=== PATIENT | female | born 1965 | race Caucasian/White ===

== ENCOUNTER 2017-10-12 08:52 | Emergency (ER) | payer OTHER ==
[~2017-10-12] VITALS: Ht 152.4 cm; Wt 60.0 kg
[2017-10-12 08:53] VITALS: BP 119/79; PULSE 81; RESP 18; TEMP 97.6; O2SAT 99
[2017-10-12] MEDS ORDERED: PROG1GEL (08:58)
[2017-10-12] MEDS ORDERED: SODIUM CHLORIDE 0.9% FLUSH 10 ML FLUSH IV FLUSH PRN (09:00)
[2017-10-12] MEDS ORDERED: ONDANSETRON HCL 4 MG/2 ML VIAL ONE (09:08)
--- NOTE | 2017-10-12 09:24 | PD ---
HPI Chief Complaint: GI Complaint Time Seen by Provider: 09:21 Travel History International Travel<30 days: No Contact w/Intl Traveler<30days: No Traveled to known affect area: No History of Present Illness HPI 52-year-old female patient presents to the ER today, states that she has been staying with her mother in the hospital after her mother had received hip surgery, and states that since last night she has been having fevers and chills , nauseous, vomiting, and diarrhea this morning. She states that she feels dizzy, also states that she is having a headache, history of migraines, headache currently rated an 8 out of 10. She denies any chest pains, shortness of breath, or other issues. Modifying Factors: None Associated Signs & Symptoms: Fevers and chills, nausea, vomiting, diarrhea, headache Risk Factors: Nausea, vomiting, diarrhea, she does not know of other sick contact. Migraine headaches. PFSH Past Medical History Medical History: Denies Significant Hx Tetanus Vaccination: > 5 Years Influenza Vaccination: No ?: Not LMP: 09/17/17 Past Surgical History Surgical History: No Previous Surgery Social History Alcohol Use: No Tobacco Use: No Substance Use: No Allergies-Medications (Allergen,Severity, Reaction): Coded Allergies: No Known Allergies (Verified Allergy, Unknown, 10/12/17) Reported Meds & Prescriptions Reported Meds & Active Scripts Active Zofran Odt (Ondansetron Odt) 4 Mg Tab 4 Mg SL Q6HR PRN Reported Crinone Topical (Progesterone (Vaginal) Topical) 4 % Gel Review of Systems Except as stated in HPI: all other systems reviewed are Neg Physical Exam Narrative GENERAL: Well-developed middle-aged female patient currently in moderate distress. Awake and oriented 3. SKIN: Focused skin assessment warm/dry. HEAD: Atraumatic. Normocephalic. EYES: Pupils equal and round. No scleral icterus. No injection or drainage. ENT: No nasal bleeding or discharge. Mucous membranes pink and moist. NECK: Trachea midline. No JVD. Supple. CARDIOVASCULAR: Regular rate and rhythm. No murmur appreciated. RESPIRATORY: No accessory muscle use. Clear to auscultation. Breath sounds equal bilaterally. GASTROINTESTINAL: Abdomen soft, non-tender, nondistended. Hepatic and splenic margins not palpable. MUSCULOSKELETAL: No obvious deformities. No clubbing. No cyanosis. No edema. NEUROLOGICAL: Awake and alert. No obvious cranial nerve deficits. Motor grossly within normal limits. Normal speech. PSYCHIATRIC: Appropriate mood and affect; insight and judgment normal. Data Data Last Documented VS Vital Signs Date Time Temp Pulse Resp B/P (MAP) Pulse Ox O2 Delivery O2 Flow Rate FiO2 10/12/17 11:33 80 18 124/78 (93) 99 Room Air 10/12/17 08:53 97.6 Orders Orders Complete Blood Count With Diff (10/12/17 09:00) Comprehensive Metabolic Panel (10/12/17 09:00) Lipase (10/12/17 09:00) Urinalysis - C+S If Indicated (10/12/17 09:00) Iv Access Insert/Monitor (10/12/17 09:00) Ecg Monitoring (10/12/17 09:00) Oximetry (10/12/17 09:00) Sodium Chloride 0.9% Flush (Ns Flush) (10/12/17 09:00) Ondansetron Inj (Zofran Inj) (10/12/17 09:08) Sodium Chlor 0.9% 1000 Ml Inj (Ns 1000 M (10/12/17 09:30) Influenzae A/B Antigen (10/12/17 09:21) Metoclopramide Inj (Reglan Inj) (10/12/17 10:15) Diphenhydramine Inj (Benadryl Inj) (10/12/17 10:15) Ct Brain W/O Iv Contrast(Rout) (10/12/17 11:19) Labs Laboratory Tests Test 10/12/17 09:00 10/12/17 09:20 White Blood Count 7.8 TH/MM3 Red Blood Count 4.29 MIL/MM3 Hemoglobin 13.6 GM/DL Hematocrit 39.5 % Mean Corpuscular Volume 92.0 FL Mean Corpuscular Hemoglobin 31.6 PG Mean Corpuscular Hemoglobin Concent 34.4 % Red Cell Distribution Width 14.0 % Platelet Count 249 TH/MM3 Mean Platelet Volume 9.4 FL Neutrophils (%) (Auto) 69.3 % Lymphocytes (%) (Auto) 21.4 % Monocytes (%) (Auto) 6.9 % Eosinophils (%) (Auto) 1.0 % Basophils (%) (Auto) 1.4 % Neutrophils # (Auto) 5.4 TH/MM3 Lymphocytes # (Auto) 1.7 TH/MM3 Monocytes # (Auto) 0.5 TH/MM3 Eosinophils # (Auto) 0.1 TH/MM3 Basophils # (Auto) 0.1 TH/MM3 CBC Comment DIFF FINAL Differential Comment Blood Urea Nitrogen 24 MG/DL Creatinine 0.67 MG/DL Random Glucose 103 MG/DL Total Protein 7.0 GM/DL Albumin 3.5 GM/DL Calcium Level 8.9 MG/DL Alkaline Phosphatase 46 U/L Aspartate Amino Transf (AST/SGOT) 17 U/L Alanine Aminotransferase (ALT/SGPT) 18 U/L Total Bilirubin 0.4 MG/DL Sodium Level 137 MEQ/L Potassium Level 3.8 MEQ/L Chloride Level 103 MEQ/L Carbon Dioxide Level 26.3 MEQ/L Anion Gap 8 MEQ/L Estimat Glomerular Filtration Rate 92 ML/MIN Lipase 84 U/L Urine Color YELLOW Urine Turbidity CLEAR Urine pH 6.5 Urine Specific Eldred 1.020 Urine Protein NEG mg/dL Urine Glucose (UA) NEG mg/dL Urine Ketones NEG mg/dL Urine Occult Blood NEG Urine Nitrite NEG Urine Bilirubin NEG Urine Urobilinogen LESS THAN 2.0 MG/DL Urine Leukocyte Esterase NEG Urine RBC 1 /hpf Urine WBC 1 /hpf Urine Squamous Epithelial Cells 3 /hpf Urine Bacteria OCC /hpf Urine Hyaline Casts 1 /lpf Urine Mucus FEW /lpf Microscopic Urinalysis Comment CULT NOT INDICATED MDM Medical Decision Making Medical Screen Exam Complete: Yes Emergency Medical Condition: Yes Medical Record Reviewed: Yes Interpretation(s) Laboratory Tests Test 10/12/17 09:00 10/12/17 09:20 Blood Urea Nitrogen 24 MG/DL (7-18) Urine Bacteria OCC /hpf (NONE) Urine Mucus FEW /lpf (OCC) Differential Diagnosis Nausea, vomiting, diarrhea, fevers: Gastroenteritis versus dehydration versus metabolic issues versus influenza versus pancreatitis Narrative Course Abdomen is benign and I am not suspecting acute intra-abdominal process. Her influenza testing is negative. Lab work did not show significant dehydration or leukocytosis. CT of the brain did not show any signs of acute intracranial processes. At this point, I suspect that she has an underlying viral syndrome or gastroenteritis. IV fluids and Zofran was given in the ER. Patient did not have further episodes of vomiting. My plan would be released the patient with follow-up to primary care physician. Rest, stay hydrated, Zofran for nausea and vomiting. The plan was discussed with her and she states understanding. She is to return for any worsening of symptoms. Diagnosis Primary Impression: Nausea and vomiting Additional Impression: Headache Med/Other Pt SpecificInfo: Prescription(s) given Scripts Rizatriptan (Rizatriptan) 5 Mg Tab 5 MG PO QID Y for MIGRAINE HEADACHE, #10 Prov: Emile Decker MD 10/12/17 Ondansetron Odt (Zofran Odt) 4 Mg Tab 4 MG SL Q6HR Y for Nausea/Vomiting, #7 TAB 0 Refills Prov: Emile Decker MD 10/12/17 Disposition: 01 DISCHARGE HOME Condition: Stable Emile Decker MD Oct 12, 2017 09:24
[2017-10-12 09:30] LABS: AUTOMATED NEUTROPHIL # 5.4 TH/MM3 (1.8-7.7); BASOPHIL # 0.1 TH/MM3 (0-0.2); BASOPHIL % 1.4 % (0.0-2.0); EOSINOPHIL # 0.1 TH/MM3 (0-0.4); HEMATOCRIT 39.5 % (35.0-46.0); HEMOGLOBIN 13.6 GM/DL (11.6-15.3); LYMPH % 21.4 % (9.0-44.0); LYMPHOCYTE # 1.7 TH/MM3 (1.0-4.8); MEAN CORPUSCULAR HEMOGLOBIN 31.6 PG (27.0-34.0); MEAN CORPUSCULAR HGB CONC 34.4 % (32.0-36.0); MEAN PLATELET VOLUME 9.4 FL (7.0-11.0); MONO % 6.9 % (0.0-8.0); MONOCYTE # 0.5 TH/MM3 (0-0.9); NEUT % 69.3 % (16.0-70.0); PLATELET COUNT 249 TH/MM3 (150-450); RED BLOOD COUNT 4.29 MIL/MM3 (4.00-5.30); WHITE BLOOD COUNT 7.8 TH/MM3 (4.0-11.0)
[2017-10-12] MEDS ORDERED: SODIUM CHLOR 0.9% 1000 ML INJ 1,000 ML IV ONE (09:30)
[2017-10-12 09:42] LABS: ALBUMIN 3.5 GM/DL (3.4-5.0); AST (GOT) 17 U/L (15-37); BICARBONATE 26.3 MEQ/L (21.0-32.0); BLOOD UREA NITROGEN 24 MG/DL (7-18); CALCIUM 8.9 MG/DL (8.5-10.1); CHLORIDE 103 MEQ/L (98-107); CREATININE 0.67 MG/DL (0.50-1.00); GLOMERULAR FILTRATION RATE 92 ML/MIN (>89); GLUCOSE,RANDOM 103 MG/DL (74-106); SODIUM (NA) 137 MEQ/L (136-145)
[2017-10-12 09:49] LABS: ALKALINE PHOSPHATASE 46 U/L (45-117); ALT (GPT) 18 U/L (10-53); TOTAL BILIRUBIN ADULT 0.4 MG/DL (0.2-1.0)
[2017-10-12 09:57] LABS: BACTERIA, URINE OCC /hpf; BILIRUBIN, URINE NEG (NEG); BLOOD, URINE NEG (NEG); GLUCOSE,URINE NEG (NEG); HYALINE CAST, URINE 1 /lpf (RARE); KETONE, URINE NEG (NEG); MUCUS URINE FEW /lpf (OCC); NITRITE,URINE NEG (NEG); PH, URINE 6.5 (5.0-8.5); SQUAMOUS EPITHELIAL CELL URINE 3 /hpf (0-5); URINE COLOR YELLOW (YELLW/STRAW); URINE LEUKOCYTE ESTERASE NEG (NEG)
[2017-10-12] MEDS ORDERED: ZOFR4TAB3 SL (10:02)
[2017-10-12] MEDS ORDERED: METOCLOPRAMIDE HCL 10 MG/2 ML VIAL IV PUSH ONE (10:15)
[2017-10-12] MEDS ORDERED: diphenhydrAMINE HCL 50 MG/ML VIAL IV PUSH ONE (10:15)
[2017-10-12 11:33] VITALS: BP 124/78; PULSE 80; RESP 18; O2SAT 99
--- NOTE | 2017-10-12 12:52 | RADRPT ---
EXAM DATE/TIME: 10/12/2017 12:42 [facility] COMPARISON: No previous studies available for comparison. INDICATIONS : Patient states she woke up with a headache. RADIATION DOSE: 56.35 CTDIvol (mGy) MEDICAL HISTORY : None SURGICAL HISTORY : None. ENCOUNTER: Initial ACUITY: 2 days PAIN SCALE: 6/10 LOCATION: cranial TECHNIQUE: Multiple contiguous axial images were obtained of the head. Using automated exposure control and adj ustment of the mA and/or kV according to patient size, radiation dose was kept as low as reasonably a chievable to obtain optimal diagnostic quality images. DICOM format image data is available electro nically for review and comparison. FINDINGS: CEREBRUM: The ventricles are normal for age. No evidence of midline shift, mass lesion, hemorrhage or acute in farction. No extra-axial fluid collections are seen. POSTERIOR FOSSA: The cerebellum and brainstem are intact. The 4th ventricle is midline. The cerebellopontine angle i s unremarkable. EXTRACRANIAL: The visualized portion of the orbits is intact. Small mucous retention cyst is noted within the right maxillary sinus. SKULL: The calvaria is intact. No evidence of skull fracture. CONCLUSION: 1. No acute intracranial disease. 2. Small mucous retention cyst is noted within the right maxillary sinus. Danny Young MD on October 12, 2017 at 12:49 Board Certified Radiologist. This report was verified electronically.
[2017-10-12] MEDS ORDERED: RIZA5TAB PO (13:11)
[2017-10-12] MEDS ORDERED: ACETAMINOPHEN 325 MG TAB PO ONE (13:45)
== END 2017-10-12 13:51 | disposition home or self-care (01) ==
LOC: NEPE 08:52
DX: R11.2 Nausea with vomiting, unspecified (principal); R51 Headache; R42 Dizziness and giddiness
CPT/HCPCS: 70450; 80053; 81001; 83690; 85025; 87804; 96361; 96374; 96375; 99284; J1200; J2405; J2765; J7030